=== PATIENT | male | born 1955 | race Caucasian/White ===

== ENCOUNTER 2021-07-01 20:00 | Inpatient (IN) ==
[2021-07-01] MEDS ORDERED: Naloxone 0.4 MG/ML INJ IVP PRN (23:55)
[2021-07-01] MEDS ORDERED: Artificial Tears SOLN 15 ML BOTTLE BOTH EYES PRN (23:55)
[2021-07-02 00:24] LABS: ABG Base Excess -6 mEq/L (-2 to 3); ABG HCO3 21 mEq/L (21-27); ABG Oxygen Saturation 100 % (95-98); ABG PCO2 41 mmHg (35-45); ABG PH 7.31 pH Units (7.32-7.45); ABG PO2 201 mmHg (85-104); ABG TCO2 22 mEq/L (20-26); Blood Gas VT 400 cc
[2021-07-02] MEDS: Artificial Tears SOLN 15 ML BOTTLE BOTH EYES SCH ×6 (00:25→21:20)
[2021-07-02] MEDS: Dexmedetomidine HCl 400 MCG/100 ML MLS IVC SCH ×3 (00:26→20:18)
[2021-07-02] MEDS: FentaNYL (PF) 1,000 MCG/100 ML IV.SOLN IVC SCH ×3 (00:41→16:01)
[2021-07-02] MEDS ORDERED: *HR* LORazepam 2 MG/ML VIAL IVP PRN (01:14)
[2021-07-02 01:21] LABS: Hemoglobin 14.1 g/dL (12.9-16.9); Mean Corpuscular Volume 96.8 fL (83.0-100.0)
[2021-07-02 01:23] LABS: Hematocrit 42.8 % (37.5-50.1); Mean Corpuscular HGB Conc 32.9 g/dL (31.6-35.5); Mean Corpuscular Hemoglobin 31.9 pg (28.0-33.3); Mean Platelet Volume 12.8 fL (9.4-12.4); Platelet Count 334 K/mcL (140-400); Red Blood Count 4.42 M/mcL (4.19-5.50); Red Cell Distribution Width 14.2 % (11.5-14.5)
[2021-07-02 01:30] LABS: White Blood Count 38.6 K/mcL (4.3-11.1)
[2021-07-02 01:44] LABS: INR 1.5; Prothrombin Time 17.2 Seconds (9.4-12.1)
[2021-07-02 01:46] LABS: Activated Partial Thrombo Time 57.7 Seconds (26.0-36.0)
[2021-07-02 01:50] LABS: Alanine Aminotransferase 26 Units/L (7-52); Albumin 3.2 g/dL (3.5-5.7); Albumin/Globulin Ratio 0.8 (1.1-2.2); Alkaline Phosphatase 59 Units/L (34-104); Amylase 139 Units/L (29-103); Aspartate Amino Transferase 96 Units/L (13-39); Bilirubin,Direct 0.4 mg/dL (0.0-0.2); Bilirubin,Indirect 0.7 mg/dL (0.0-1.0); Bilirubin,Total 1.1 mg/dL (0.3-1.0); C-Reactive Protein > 300 mg/L (Less than 10); Lipase 86 Units/L (11-82); Total Protein 7.2 g/dL (6.4-8.9)
[2021-07-02 01:53] LABS: Albumin 3.1 g/dL (3.5-5.7); Albumin/Globulin Ratio 0.8 (1.1-2.2); Bilirubin,Total 1.1 mg/dL (0.3-1.0); Calcium 8.2 mg/dL (8.6-10.3); Phosphorous 6.3 mg/dL (2.7-4.5); Total Protein 7.1 g/dL (6.4-8.9); Troponin I 0.32 ng/mL (< 0.04)
[2021-07-02 01:58] LABS: VBG Ionized Calcium 0.98 mmol/L (1.15-1.35)
[2021-07-02 02:01] LABS: Lymphocytes # 1.5 K/mcL (0.6-4.6); Neutrophils # 36.3 K/mcL (1.6-8.9); Platelet Estimate Normal (Normal); Toxic Granulation Present (Not Present); Toxic Vacuolation Present (Not Present)
[2021-07-02] MEDS ORDERED: *HR* Heparin 5,000 UNIT/ML VIAL IVP ONE (02:21)
[2021-07-02] MEDS ORDERED: *HR* Heparin 5,000 UNIT/ML VIAL IVP PRN ×3 (02:21→23:12)
[2021-07-02] MEDS: Calcium Gluconate 1gm/50mL 1 GM/50 ML BAG IVPB SCH ×2 (02:42→03:45)
[2021-07-02] MEDS: Thiamine (B-1) 100 MG, Folic Acid 1 MG, MVI, adult with vitamin K 10 ML in 0.9 % Sodi... IVPB SCH ×2 (02:44→17:12)
[2021-07-02] MEDS: Heparin 25,000UNIT/250ML 1/2NS 25,000 UNIT/250 ML IV.SOLN IVC SCH (03:55)
[2021-07-02 04:12] LABS: Heparin anti-factor XA UFH < 0.04 IU/mL (0.30-0.70)
[2021-07-02 04:13] LABS: INR 1.5; Prothrombin Time 16.7 Seconds (9.4-12.1)
[2021-07-02 04:55] LABS: ABG Base Excess -6 mEq/L (-2 to 3); ABG HCO3 21 mEq/L (21-27); ABG Oxygen Saturation 98 % (95-98); ABG PCO2 42 mmHg (35-45); ABG PO2 114 mmHg (85-104); ABG TCO2 22 mEq/L (20-26); Blood Gas VT 400 cc
[2021-07-02] MEDS ORDERED: Perflutren Lipid Microsphere 1.3 ML in 0.9 % Sodium Chloride 8.7 ML IVP PRN ×2 (06:51→07:31)
[2021-07-02] MEDS ORDERED: Piperacillin/Tazobactam 3.375 GM in 0.9 % Sodium Chloride Mini Bag 100 ML IVPB SCH (08:00)
[2021-07-02] MEDS: Chlorhexidine Rinse 15 ML MOUTHWASH MM SCH ×2 (08:24→21:24)
[2021-07-02] MEDS: Pantoprazole 40 MG VIAL IVP SCH (08:24)
[2021-07-02 10:54] LABS: Amorphous Sediment,Urine Few per hpf (None-Few); Bilirubin,Urine Negative (Negative); Blood,Urine Large (Negative); Clarity,Urine Ex.Turbid (Clear); Color,Urine Dark-Yellow (Yellow); Glucose,Urine (UA) 150 mg/dL (Normal); Hyaline Casts,Urine Few per lpf (None Seen); Ketones,Urine Negative (Negative); Leukocyte Esterase,Urine Negative (Negative); Mucus,Urine Few per lpf (None-Few); Nitrite,Urine Negative (Negative); PH,Urine 5.5 pH Units (5.0-8.0); Protein,Urine 200 mg/dL (Neg-Trace); RBC,Urine TNTC per hpf (0-3); Specific Gravity,Urine 1.023 (1.010-1.025); Urobilinogen,Urine Normal (Normal)
[2021-07-02] MEDS: Dexamethasone Sodium Phos/PF 10 MG/ML VIAL IVP SCH (11:46)
[2021-07-02] MEDS ORDERED: *HR* Heparin 10,000 UNIT/10 ML VIAL IV PRN (12:32)
[2021-07-02] MEDS ORDERED: Albumin 25% 25gram/100mL 25 GM/100 ML IV.SOLN IVPB PRN (12:32)
[2021-07-02] MEDS ORDERED: 0.9 % Sodium Chloride 250 ML IVC PRN (12:32)
[2021-07-02] MEDS ORDERED: 0.9 % Sodium Chloride 1,000 ML PRIME SCH (12:45)
[2021-07-02] MEDS ORDERED: Dextrose Gel 15 GM/37.5 ML TUBE PO PRN ×2 (14:04)
[2021-07-02] MEDS ORDERED: D5% in Water 1,000 ML IVC PRN (14:04)
[2021-07-02] MEDS ORDERED: 0.9 % Sodium Chloride 500 ML ONE (14:32)
[2021-07-02] MEDS ORDERED: *HR* Dextrose 50 % in Water (Syg) 50 ML SYRINGE IVP PRN (14:35)
[2021-07-02] MEDS ORDERED: *HR* Etomidate 20 MG/10 ML AMPUL IVP ONE (14:49)
[2021-07-02] MEDS ORDERED: *HR* Rocuronium Bromide 50 MG/5 ML VIAL IVP ONE (14:49)
[2021-07-02] MEDS ORDERED: *HR* Heparin 5,000 UNIT/ML VIAL ONE (14:56)
[2021-07-02 15:03] LABS: Protein/Creatinine Ratio,Urine 4.42 mg/mg (0.00-0.20); Sodium, Urine 28.6 mEq/L
[2021-07-02] MEDS ORDERED: Insulin LISPRO 300 UNITS/3 ML VIAL SUBQ SCH (16:00)
[2021-07-02] MEDS: Aspirin 81 MG TAB.CHEW GTUBE SCH (17:12)
[2021-07-02] MEDS: Piperacillin/Tazobactam 3.375 GM in 0.9 % Sodium Chloride Mini Bag 100 ML IVPB SCH (17:12)
[2021-07-02] MEDS: Insulin LISPRO 300 UNITS/3 ML VIAL SUBQ SCH (17:35)
[2021-07-02] MEDS: Norepinephrine 4 MG/254 ML IV.SOLN IVC SCH ×2 (18:04→21:51)
[2021-07-02] MEDS ORDERED: Cisatracurium 200 MG in 0.9 % Sodium Chloride 180 ML IVC SCH (19:00)
[2021-07-02 19:26] LABS: Hepatitis B Surface Antibody < 3.10 mIU/mL
[2021-07-02] MEDS ORDERED: *HR* Midazolam HCl 5 MG/5 ML VIAL IVP ONE (19:56)
[2021-07-02] MEDS ORDERED: 0.9 % Sodium Chloride 1,000 ML ONE (20:39)
[2021-07-02 20:57] LABS: ABG Base Excess -10 mEq/L (-2 to 3); ABG HCO3 16 mEq/L (21-27); ABG Oxygen Saturation 98 % (95-98); ABG PCO2 34 mmHg (35-45); ABG PH 7.27 pH Units (7.32-7.45); ABG PO2 114 mmHg (85-104); ABG TCO2 17 mEq/L (20-26)
[2021-07-02 21:05] LABS: Red Cell Distribution Width 14.8 % (11.5-14.5)
[2021-07-02 21:07] LABS: Hematocrit 40.2 % (37.5-50.1); Hemoglobin 12.5 g/dL (12.9-16.9); Immature Platelets 12.8 % (1.1-6.1); Mean Corpuscular HGB Conc 31.1 g/dL (31.6-35.5); Mean Corpuscular Hemoglobin 31.4 pg (28.0-33.3); Mean Platelet Volume 13.3 fL (9.4-12.4); Nucleated Red Blood Cells 0.1 /100 WBC (0); Platelet Count 303 K/mcL (140-400); Red Blood Count 3.98 M/mcL (4.19-5.50)
[2021-07-02 21:13] LABS: ABG Base Excess -9 mEq/L (-2 to 3); ABG HCO3 21 mEq/L (21-27); ABG Oxygen Saturation 52 % (95-98); ABG PCO2 55 mmHg (35-45); ABG PH 7.18 pH Units (7.32-7.45); ABG PO2 35 mmHg (85-104); ABG TCO2 22 mEq/L (20-26)
[2021-07-02 21:14] LABS: Heparin anti-factor XA UFH 0.51 IU/mL (0.30-0.70); INR 1.2; Prothrombin Time 14.3 Seconds (9.4-12.1)
[2021-07-02] MEDS ORDERED: Amiodarone Premix 150 MG/100 ML BAG IVPB ONE ×2 (21:15→23:46)
[2021-07-02] MEDS ORDERED: Amiodarone Premix 360 MG/200 ML BAG IVC ONE (21:15)
[2021-07-02 21:17] LABS: White Blood Count 44.9 K/mcL (4.3-11.1)
[2021-07-02] MEDS: Midazolam HCl 50 MG/100 ML IV.SOLN IVC SCH (21:20)
[2021-07-02 21:28] LABS: Calcium 10.3 mg/dL (8.6-10.3); Magnesium 2.9 mg/dL (1.6-2.6); Phosphorous 7.1 mg/dL (2.7-4.5); Potassium 5.5 mEq/L (3.5-5.1)
[2021-07-02 21:29] LABS: Lymphocytes # 0.9 K/mcL (0.6-4.6); Monocytes # 1.8 K/mcL (0.0-1.3); Neutrophils # 42.2 K/mcL (1.6-8.9); Platelet Estimate Normal (Normal); Toxic Granulation Present (Not Present)
[2021-07-02 21:31] LABS: Troponin I 0.3 ng/mL (< 0.04)
[2021-07-02] MEDS ORDERED: PrismaSATE BGK 4/2.5 5,000 ML CRRT SCH ×2 (23:15)
[2021-07-03] MEDS: FentaNYL (PF) 1,000 MCG/100 ML IV.SOLN IVC SCH (00:55)
[2021-07-03] MEDS: Norepinephrine 4 MG/254 ML IV.SOLN IVC SCH ×3 (02:31→06:56)
[2021-07-03] MEDS: Insulin LISPRO 300 UNITS/3 ML VIAL SUBQ SCH ×2 (02:32→06:26)
[2021-07-03] MEDS: Artificial Tears SOLN 15 ML BOTTLE BOTH EYES SCH ×3 (02:32→08:32)
[2021-07-03 02:41] LABS: Hepatitis B Surface Antigen Nonreactive (Nonreactive)
[2021-07-03] MEDS ORDERED: FentaNYL (PF) 2,500 MCG/50 ML IV.SOLN IVC SCH ×2 (02:45→10:51)
[2021-07-03] MEDS ORDERED: Vasopressin 40 UNIT in D5% in Water 100 ML IVC SCH (03:15)
[2021-07-03 04:03] VITALS: TEMP 98.4
[2021-07-03] MEDS ORDERED: Amiodarone Premix 360 MG/200 ML BAG IVC SCH (04:15)
[2021-07-03 04:16] LABS: VBG Ionized Calcium 1.12 mmol/L (1.15-1.35)
[2021-07-03 04:18] LABS: Mean Corpuscular Volume 101.1 fL (83.0-100.0); Nucleated Red Blood Cells 0.1 /100 WBC (0)
[2021-07-03 04:21] LABS: Hematocrit 38.1 % (37.5-50.1); Hemoglobin 12.3 g/dL (12.9-16.9); Immature Platelets 13.4 % (1.1-6.1); Mean Corpuscular HGB Conc 32.3 g/dL (31.6-35.5); Mean Corpuscular Hemoglobin 32.6 pg (28.0-33.3); Mean Platelet Volume 13.2 fL (9.4-12.4); Platelet Count 354 K/mcL (140-400); Red Blood Count 3.77 M/mcL (4.19-5.50); Red Cell Distribution Width 15.2 % (11.5-14.5)
[2021-07-03 04:32] LABS: White Blood Count 56.9 K/mcL (4.3-11.1)
[2021-07-03 04:46] LABS: Calcium 8.4 mg/dL (8.6-10.3); Magnesium 2.7 mg/dL (1.6-2.6); Phosphorous 8.8 mg/dL (2.7-4.5); Potassium 5.6 mEq/L (3.5-5.1)
[2021-07-03 04:57] LABS: ABG Base Excess -7 mEq/L (-2 to 3); ABG HCO3 20 mEq/L (21-27); ABG Oxygen Saturation 98 % (95-98); ABG PCO2 47 mmHg (35-45); ABG PH 7.24 pH Units (7.32-7.45); ABG PO2 126 mmHg (85-104); ABG TCO2 21 mEq/L (20-26); Blood Gas VT 430 cc
[2021-07-03 05:04] LABS: Lymphocytes # 1.1 K/mcL (0.6-4.6); Monocytes # 5.7 K/mcL (0.0-1.3); Neutrophils # 46.7 K/mcL (1.6-8.9)
[2021-07-03 05:05] LABS: Anisocytosis 1+ (Not Present); Platelet Estimate Normal (Normal); Poikilocytosis 1+ (Not Present); Reactive Lymphocytes Present (Not Present)
[2021-07-03] MEDS: 0.9 % Sodium Chloride 1,000 ML PRIME SCH ×3 (05:24→05:46)
[2021-07-03] MEDS: Heparin 25,000UNIT/250ML 1/2NS 25,000 UNIT/250 ML IV.SOLN IVC SCH (05:31)
[2021-07-03] MEDS: Piperacillin/Tazobactam 3.375 GM in 0.9 % Sodium Chloride Mini Bag 100 ML IVPB SCH (05:50)
[2021-07-03] MEDS: Midazolam HCl 50 MG/100 ML IV.SOLN IVC SCH ×2 (07:10)
[2021-07-03] MEDS ORDERED: *HR* Alteplase (Cathflo) 2 MG VIAL IVP ONE (08:15)
[2021-07-03] MEDS ORDERED: Phenylephrine 10 MG in 0.9 % Sodium Chloride 250 ML IVC SCH (08:45)
[2021-07-03 09:10] VITALS: PULSE 88
[2021-07-03 09:32] VITALS: O2SAT 90
[2021-07-03] MEDS ORDERED: *HR* FentaNYL (PF) 100 MCG/2 ML VIAL IVP PRN (10:46)
[2021-07-03] MEDS ORDERED: *HR* LORazepam 2 MG/ML VIAL IVP PRN (10:46)
[2021-07-03] MEDS: Aspirin 81 MG TAB.CHEW GTUBE SCH (11:24)
[2021-07-03] MEDS: Chlorhexidine Rinse 15 ML MOUTHWASH MM SCH (11:24)
[2021-07-03] MEDS: Pantoprazole 40 MG VIAL IVP SCH (11:25)
[2021-07-03] MEDS: Dexamethasone Sodium Phos/PF 10 MG/ML VIAL IVP SCH (11:25)
[2021-07-03 11:31] VITALS: BP 86/71
== END 2021-07-03 13:05 | disposition expired | DRG 871 ==
LOC: ICNU 23:03
PROVIDERS: ADMIT Family Medicine; ATTEND Family Medicine